=== PATIENT | female | born 1960 | race Caucasian/White ===

== ENCOUNTER 2017-08-19 10:39 | Emergency (ER) | payer OTHER ==
[~2017-08-19] VITALS: Ht 157.5 cm; Wt 68.0 kg
[~2017-08-19 10:39] MED LIST: DOK100 M1 PO; HYCET 325 MG/1473 ML PO; LOVENOX 4040 MG/0.4 SC; METFORMIN HCL500 MG PO; MULTIVITAMIN1 TAB PO; PANTOPRAZOLE SO40 MG PO; PERCOCET 325 MG1 TA2 PO; VITAMIN C500 M3 PO
--- NOTE | 2017-08-19 13:12 | ED GI/GU/ABDOMINAL COMPLAINT ---
History of Present Illness General Chief Complaint: Abdominal Pain/Flank Pain Stated Complaint: ABD PAIN X4 DAYS, +ND, NOT GETTING BETTER Source: patient Exam Limitations: no limitations Vital Signs & Intake/Output Vital Signs & Intake/Output Vital Signs Date Time Temp Pulse Resp B/P B/P Pulse O2 O2 Flow FiO2 Mean Ox Delivery Rate 08/19 1350 98.2 74 18 118/72 100 Room Air 08/19 1052 98.0 80 20 106/68 99 Room Air ED Intake and Output 08/20 0000 08/19 1200 Intake Total 1000 Output Total Balance 1000 Intake, IV 1000 Patient 150 lb Weight Weight Reported by Patient Measurement Method Allergies Coded Allergies: amoxicillin (Intermediate, HIVES 08/19/17) oxycodone (From PERCOCET) (NAUSEA 08/19/17) Reconcile Medications Duloxetine HCl 30 MG CAPSULE.DR 1 CAP PO DAILY NERVE PAIN (Reported) Loperamide HCl (Imodium A-D) 2 MG CAPSULE 1 TAB PO PRN PRN Diarrhea Take 2 tablets x 1 dose now. Take 1 tablet as needed after loose bowel movements. Max: 4 daily. Multivitamin (Multi-Vitamin Daily) 1 EACH TABLET 1 TAB PO DAILY SUPPLEMENT ( Reported) Ondansetron (Zofran Odt) 4 MG TAB.RAPDIS 1 TAB SL TID nausea Triage Note: PT C/O MID ABDOMINAL PAIN X 3 WITH DIARRHEA. PT STATES CAME BACK FROM [facility] ON MONDAY AND STARTED FEELING SICK ON THE PLANE Triage Nurses Notes Reviewed? yes ? N Is pt currently ? No HPI: 57-year-old female presents emergency department complaining of 4 days intermittent epigastric/periumbilical abdominal pain. Patient has had decreased appetite due to intermittent nausea. She has had a few episodes of nonbloody, watery diarrhea. Denies any fever or chills. No sick contacts. No recent travel. She has had a previous gastric bypass 3.5 years ago. Denies any other abdominal surgeries. She has no chest pain or shortness of breath. Denies dysuria or hematuria. No vaginal pain or vaginal discharge. (Compa BANUELOS,Yoel) Past History Travel History Traveled to [place] past 21 day No Medical History Any Pertinent Medical History? none History of MRSA: No History of VRE: No History of CDIFF: No Influenza Vaccine: 11/13/13 Surgical History Surgical History: GASTRIC BYPASS 01/07/2014 Psychosocial History Services at Home None What is your primary language Bhutanese Tobacco Use: Never used ETOH Use: denies use Illicit Drug Use: denies illicit drug use Family History Hx Contributory? No (Yoel Chatman PA-C) Review of Systems Review of Systems Constitutional: Reports: no symptoms. EENTM: Reports: no symptoms. Respiratory: Reports: no symptoms. Cardiovascular: Reports: no symptoms. GI: Reports: see HPI. Genitourinary: Reports: no symptoms. Musculoskeletal: Reports: no symptoms. Skin: Reports: no symptoms. All Other Systems: Reviewed and Negative (Yoel Chatman PA-C) Physical Exam Physical Exam General Appearance: well developed/nourished, no apparent distress Head: atraumatic, normal appearance Eyes: Bilateral: PERRL, normal inspection. Ears, Nose, Throat, Mouth: moist mucous membrane Neck: supple Respiratory: normal breath sounds, chest non-tender, quiet respiration Cardiovascular: regular rate/rhythm Gastrointestinal: Slight TTP in epigastric and periumbilical areas. No rebound or guarding. Neg cadena's sign. No mcburneys point tenderness. No CVAT Skin: intact, normal color, warm/dry Core Measures ACS in differential dx? Yes Sepsis Present: No Sepsis Focused Exam Completed? No (Yoel Chatman PA-C) Progress Differential Diagnosis: AAA, appendicitis, biliary colic, bowel obstruction, colon cancer, cholecystitis, diverticulitis, gastritis, inflamm bowel dis, kidney stone, pancreatitis, SBO, UTI/pyelo Plan of Care: Orders Procedure Date/time Status CULTURE,URINE 08/19 1431 Active URINALYSIS 08/19 1431 Complete TROPONIN LEVEL 08/19 1250 Complete LIPASE 08/19 1250 Complete COMPREHENSIVE METABOLIC PANEL 08/19 1250 Complete CBC WITHOUT DIFFERENTIAL 08/19 1250 Complete Laboratory Tests 08/19/17 1432: Urine Color YEL, Urine Clarity CLEAR, Urine pH 6.0, Ur Specific [place] 1.010, Urine Protein NEG, Urine Ketones NEG, Urine Nitrite NEG, Urine Bilirubin NEG, Urine Urobilinogen 0.2, Ur Leukocyte Esterase NEG, Ur Microscopic EXAM NOT REQUIRED, Urine Hemoglobin NEG, Urine Glucose NEG 08/19/17 1303: Anion Gap 11, Estimated GFR > 60, BUN/Creatinine Ratio 18.0, Glucose 100 H, Calcium 9.1, Total Bilirubin 0.7, AST 24, ALT 29, Alkaline Phosphatase 59, Troponin I < 0.01, Total Protein 6.9, Albumin 3.8, Globulin 3.1, Albumin/ Globulin Ratio 1.2, Lipase 114, CBC w Diff NO MAN DIFF REQ, RBC 4.36, MCV 92.2, MCH 30.6, MCHC 33.2, RDW 13.5, MPV 11.1 H, Gran % 62.6, Lymphocytes % 25.8, Monocytes % 10.3 H, Eosinophils % 0.9, Basophils % 0.4, Absolute Granulocytes 4.8, Absolute Lymphocytes 2.0, Absolute Monocytes 0.8 H, Absolute Eosinophils 0.1, Absolute Basophils 0 Microbiology 08/19 1432 URINE ROUT: Urine Culture - RECD Diagnostic Imaging: Viewed by Me: CT Scan. Discussed w/RAD: CT Scan. Radiology Impression: PATIENT: SUZE CHARLES PRESENT AGE: 57 PATIENT ACCOUNT NO: [id number] : 62 LOCATION: [facility] ORDERING PHYSICIAN: Yoel Chatman PA-C SERVICE DATE: 08/19/17 EXAM TYPE: CAT - CT ABD & PELVIS W/ ORAL CONTRA EXAMINATION: CT ABDOMEN AND PELVIS WITHOUT CONTRAST CLINICAL INFORMATION: Epigastric and periumbilical pain. History of gastric bypass. COMPARISON: August 27, 2014. TECHNIQUE: Multidetector volumetric imaging was performed from the lung bases through the pubic symphysis following the administration of: Oral contrast: Yes Intravenous contrast: None Sagittal and coronal reformatted images were obtained on the technologist workstation. Total exam dose-length product 252.99 mGy-cm FINDINGS: LUNG BASES: Visualized lung bases and mediastinum are normal. No pleural effusion. No pericardial effusion. LIVER, GALLBLADDER, BILIARY TREE: The non-contrast liver is normal in size, shape, and attenuation. No focal hepatic lesion or biliary ductal dilatation is present. The gallbladder is unremarkable with no evidence of radiopaque gallstones, gallbladder wall thickening, or obvious pericholecystic inflammatory changes. PANCREAS: No pancreatic abnormality appreciated. SPLEEN: Normal size. No focal lesion. ADRENAL GLANDS: Normal; no mass. KIDNEYS AND URETERS: The kidneys are normal in size, shape, and attenuation. No right hydronephrosis or hydroureter seen. No perinephric stranding. There is mild fullness of the left upper collecting system however the left ureter is not prominent and no ureteral calculi are seen. There appear to be 2 mm nonobstructing calculi seen in the upper poles of right and left kidneys. BLADDER: No focal mass or wall thickening seen. No bladder calculi. GASTROINTESTINAL TRACT: No dilated loops of large or small bowel are evident. The appendix is not visualized. Status post gastric bypass surgery. No contrast is seen within the excluded stomach portion however there is some air in the nondependent position within the excluded segment which is likely due to retrograde filling of the excluded stomach. ABDOMINAL WALL: No hernia seen. LYMPHOVASCULAR STRUCTURES: There are some mildly enlarged lymph nodes seen with short axis diameter of 1 cm in the pericecal region. No adjacent fluid is present and no appendix is identified within the vicinity. PELVIC VISCERA: No abnormal pelvic mass identified. No free pelvic fluid. IUD seen in place. OSSEOUS STRUCTURES: No suspicious destructive bony lesions identified. IMPRESSION: Small nonobstructing renal calculi. Mild fullness left upper collecting system but without calculus seen along the path of the ureter. Prominent pericecal lymph nodes present with appendix not being visualized. DICTATED BY: Ghassan Mann MD DATE/TIME DICTATED:08/19/171415 INTERNET MERCHANT:ISIDORO DATE/TIME TRANSCRIBED:08/19/171415 CONFIDENTIAL, DO NOT COPY WITHOUT APPROPRIATE AUTHORIZATION. <Electronically signed in Other Vendor System> SIGNED BY: Ghassan Mann MD 08/19/17 1507 Initial ED EKG: none Comments: 57-year-old female presents with 3-4 days of epigastric/periumbilical abdominal pain, watery diarrhea and intermittent nausea. Patient has no focal tenderness on her abdominal exam. No McBurney's point tenderness. No Cadena sign. Her lab work is overall nonactionable. Urinalysis negative. CT scan was reviewed. There is no significant pathologies. I have low concern for appendicitis, SBO, diverticulitis, perforation, or overall acute abdomen in this patient. She is very comfortable on exam and well-appearing. Will give patient Zofran and Imodium for symptom relief. I encouraged she follow up with her primary care doctor and/GI doctor within 24 hours. She should return to the emergency department immediately with any worsening symptoms. She is in agreement with plan of care. (Compa BANUELOS,Yoel) Departure Departure Time of Disposition: 1513 Disposition: HOME OR SELF CARE Condition: Stable Clinical Impression Primary Impression: Abdominal pain Referrals: Beth HERNDON,Avelino Barreto (PCP/Family) Additional Instructions: Take Zofran as needed for nausea. Take Imodium as needed for diarrhea. You should follow-up with your primary care doctor as well as your GI doctor within 24-48 hours. You should return to the emergency department immediately if you develop any new or worsening symptoms as discussed. Please go over all results of today's visit with your primary care doctor. Contact your primary care doctor to let them know you were here in the emergency room. There may be nonspecific findings which may not be related to your visit today here in the emergency room but may require further evaluation and chronic monitoring by your primary care doctor. If you had a laceration today the chance of foreign body always remains. You should follow-up with your primary care doctor for recheck in 3-5 days for a wound check. If you had an x-ray done there is a chance that a fracture could have been missed on initial read and you should follow-up with your primary care doctor for repeat x-rays if symptoms persist. If your blood pressure was elevated here in the emergency room please have rechecked by [facility] primary care doctor within the next 48. If you were prescribed a narcotic here in the emergency room or any type of controlled substances you're not allowed to drive while taking this medication or operate any type of heavy machinery. Narcotics can make you feel lightheaded dizziness nausea and can cause constipation. You may need to cherry picker operator a stool softener. Thank you for choosing [facility] emergency room. Please return to the emergency room immediately if you have any other concerns worsening of symptoms. Departure Forms: Customer Survey General Discharge Information Prescriptions: Current Visit Scripts Ondansetron (Zofran Odt) 1 TAB SL TID #10 TAB Loperamide HCl (Imodium A-D) 1 TAB PO PRN PRN Diarrhea #20 TAB Take 2 tablets x 1 dose now. Take 1 tablet as needed after loose bowel movements. Max: 4 daily. (Compa BANUELOS,Yoel) PA/INSOLE ROUNDER Co-Sign Statement Statement: ED Attending supervision documentation- I saw and evaluated the patient. I have also reviewed all the pertinent lab results and diagnostic results. I agree with the findings and the plan of care as documented in the PA's/INSOLE ROUNDER's documentation. x I have reviewed the ED Record and agree with the PA's/INSOLE ROUNDER's documentation. [] Additions or exceptions (if any) to the PAs/INSOLE ROUNDER's note and plan are summarized below: [] (Binu HERNDON,Josh) ED Attending Observation Initial Observation Note: I have seen and personally examined SUZE CHARLES on 08/19/17 at 2221. I agree with the current emergency department documentation. The disposition (admission or discharge) is uncertain at this time, she needs a period of observation for the following reason(s): The ED Nurse caring for this patient has been personally informed as to what the patient is being observed for. (Compa BANUELOS,Yoel)
[2017-08-19 13:42] LABS: ABSOLUTE BASOPHIL COUNT 0 /CUMM (0.0-0.2); ABSOLUTE EOSINOPHIL COUNT 0.1 /CUMM (0.0-0.7); ABSOLUTE GRANULOCYTE CT 4.8 /CUMM (1.4-6.5); ABSOLUTE MONOCYTE COUNT 0.8 /CUMM (0.10-0.60); BASOPHIL % 0.4 % (0.0-2.0); EOSINOPHIL % 0.9 % (0-5); GRANULOCYTE % 62.6 % (42.2-75.2); HEMATOCRIT 40.2 % (37-47); MEAN CORPUSCULAR HGB 30.6 PG (27.0-31.0); MEAN CORPUSCULAR HGB CONC 33.2 G/DL (33.0-37.0); MEAN CORPUSCULAR VOLUME 92.2 FL (81.0-99.0); MEAN PLATELET VOLUME 11.1 FL (7.4-10.4); PLATELET COUNT 273 /CUMM (130-400); RBC DISTRIBUTION WIDTH 13.5 % (11.5-14.5); RED BLOOD CELL CT 4.36 /CUMM (4.20-5.40); WHITE BLOOD CELL COUNT 7.6 /CUMM (4.8-10.8)
[2017-08-19 13:50] VITALS: BP 118/72
[2017-08-19] MEDS ORDERED: DULOXETINE HCL30 MG PO (14:37)
[2017-08-19] MEDS ORDERED: MULTI-VITAMIN1 EACH PO (14:37)
--- NOTE | 2017-08-19 15:03 | CT SCAN REPORT ---
EXAMINATION: CT ABDOMEN AND PELVIS WITHOUT CONTRAST CLINICAL INFORMATION: Epigastric and periumbilical pain. History of gastric bypass. COMPARISON: August 27, 2014. TECHNIQUE: Multidetector volumetric imaging was performed from the lung bases through the pubic symphysis following the administration of: Oral contrast: Yes Intravenous contrast: None Sagittal and coronal reformatted images were obtained on the technologist workstation. Total exam dose-length product 252.99 mGy-cm FINDINGS: LUNG BASES: Visualized lung bases and mediastinum are normal. No pleural effusion. No pericardial effusion. LIVER, GALLBLADDER, BILIARY TREE: The non-contrast liver is normal in size, shape, and attenuation. No focal hepatic lesion or biliary ductal dilatation is present. The gallbladder is unremarkable with no evidence of radiopaque gallstones, gallbladder wall thickening, or obvious pericholecystic inflammatory changes. PANCREAS: No pancreatic abnormality appreciated. SPLEEN: Normal size. No focal lesion. ADRENAL GLANDS: Normal; no mass. KIDNEYS AND URETERS: The kidneys are normal in size, shape, and attenuation. No right hydronephrosis or hydroureter seen. No perinephric stranding. There is mild fullness of the left upper collecting system however the left ureter is not prominent and no ureteral calculi are seen. There appear to be 2 mm nonobstructing calculi seen in the upper poles of right and left kidneys. BLADDER: No focal mass or wall thickening seen. No bladder calculi. GASTROINTESTINAL TRACT: No dilated loops of large or small bowel are evident. The appendix is not visualized. Status post gastric bypass surgery. No contrast is seen within the excluded stomach portion however there is some air in the nondependent position within the excluded segment which is likely due to retrograde filling of the excluded stomach. ABDOMINAL WALL: No hernia seen. LYMPHOVASCULAR STRUCTURES: There are some mildly enlarged lymph nodes seen with short axis diameter of 1 cm in the pericecal region. No adjacent fluid is present and no appendix is identified within the vicinity. PELVIC VISCERA: No abnormal pelvic mass identified. No free pelvic fluid. IUD seen in place. OSSEOUS STRUCTURES: No suspicious destructive bony lesions identified. IMPRESSION: Small nonobstructing renal calculi. Mild fullness left upper collecting system but without calculus seen along the path of the ureter. Prominent pericecal lymph nodes present with appendix not being visualized.
[2017-08-19] MEDS ORDERED: ZOFRAN ODT4 M1 SL (15:17)
[2017-08-19] MEDS ORDERED: IMODIUM A-D2 M2 PO (15:17)
== END 2017-08-19 15:24 ==
LOC: ERH 10:39
PROVIDERS: Physician Assistant
DX: R10.13 Epigastric pain (principal); R10.33 Periumbilical pain; R11.0 Nausea
CPT/HCPCS: 74176; 81003; 87086; 96360